=== PATIENT | male | born 1945 | race Caucasian/White ===

== ENCOUNTER 2017-01-12 12:34 | Emergency (ER) | payer MEDICARE ==
[~2017-01-12] VITALS: Ht 177.8 cm; Wt 88.4 kg
[~2017-01-12 12:34] MED LIST: BUPR-175 PO; DILT180C56 PO; DONE5TAB14 PO; NAME5TAB2 PO; ST J81CH PO
[2017-01-12 12:48] VITALS: BP 120/84; PULSE 71; RESP 16; TEMP 97.5; O2SAT 97
[2017-01-12] MEDS ORDERED: ASPI1TAB69 PO (12:58)
[2017-01-12] MEDS ORDERED: DILT180C56 PO (12:58)
[2017-01-12] MEDS ORDERED: DONE5TAB7 PO (12:58)
[2017-01-12] MEDS ORDERED: NAME5TAB2 PO (12:58)
--- NOTE | 2017-01-12 13:04 | PD ---
HPI Chief Complaint: Dizziness Time Seen by Provider: 12:51 Travel History International Travel<30 days: No Contact w/Intl Traveler<30days: No Traveled to known affect area: No History of Present Illness HPI This 71-year-old male says he is not feeling well today. He says his head is spinning and he feels weak all over. He has a history of atrial fibrillation that isn't chronically. He had one ablation which was not successful. He is given aspirin for anticoagulation. He has a history of vertigo in the past and he has chronic tinnitus. 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 He did not have brain surgery. PFSH Past Medical History Atrial Fibrillation: Yes Heart Rhythm Problems: Yes Cardiac Catheterization: No Cardiovascular Problems: Yes (A-FIB) High Cholesterol: No Congestive Heart Failure: No Diabetes: No Heparin Induced Thrombocytopen: No Hypertension: Yes Psychiatric: Yes Influenza Vaccination: Yes Past Surgical History Cardiac Surgery: Yes (ABLASION) Coronary Artery Bypass Graft: No Tonsillectomy: Yes Family History Family Myocardial Infarction: No Social History Alcohol Use: No Tobacco Use: No Substance Use: No Allergies-Medications (Allergen,Severity, Reaction): Coded Allergies: No Known Allergies (Unverified , 01/12/17) Reported Meds & Prescriptions Reported Meds & Active Scripts Active Reported Donepezil 5 Mg Tab 5 Mg PO HS Namenda (Memantine) 5 Mg Tab 5 Mg PO DAILY Diltiazem CD 24 HR 180 Mg Caper 180 Mg PO DAILY Aspirin 81 Mg Tabdr 81 Mg PO DAILY Review of Systems General / Constitutional: No: Fever, Chills Eyes: No: Diploplia, Blurred Vision HENT: Positive: Vertigo (tinnitus) Cardiovascular: No: Chest Pain or Discomfort, Palpitations Respiratory: No: Cough Gastrointestinal: No: Vomiting, Diarrhea Genitourinary: No: Frequency Musculoskeletal: Positive: Myalgias Neurologic: Positive: Weakness, Dizziness Endocrine: No: Heat Intolerance Hematologic/Lymphatic: No: Easy Bruising Physical Exam Narrative GENERAL: Well-developed male SKIN: Focused skin assessment warm/dry. HEAD: Atraumatic. Normocephalic. EYES: Pupils equal and round. No scleral icterus. No injection or drainage. Some right horizontal nystagmus on right lateral gaze ENT: No nasal bleeding or discharge. Mucous membranes pink and moist. NECK: Trachea midline. No JVD. CARDIOVASCULAR: Regular rate and rhythm. No murmur appreciated. RESPIRATORY: No accessory muscle use. Clear to auscultation. Breath sounds equal bilaterally. GASTROINTESTINAL: Abdomen soft, non-tender, nondistended. Hepatic and splenic margins not palpable. MUSCULOSKELETAL: No obvious deformities. No clubbing. No cyanosis. No edema. NEUROLOGICAL: Awake and alert. No obvious cranial nerve deficits. Motor grossly within normal limits. Normal speech. PSYCHIATRIC: Appropriate mood and affect; insight and judgment normal. Data Data Last Documented VS Vital Signs Date Time Temp Pulse Resp B/P Pulse Ox O2 Delivery O2 Flow Rate FiO2 01/12/17 13:40 64 18 117/80 97 Room Air 01/12/17 12:48 97.5 Orders Complete Blood Count With Diff (01/12/17 13:02) Basic Metabolic Panel (Bmp) (01/12/17 13:02) Troponin I (01/12/17 13:02) Magnesium (Mg) (01/12/17 13:02) Meclizine (Antivert) (01/12/17 13:15) Labs Laboratory Tests Test 01/12/17 13:15 White Blood Count 6.3 TH/MM3 Red Blood Count 5.39 MIL/MM3 Hemoglobin 16.0 GM/DL Hematocrit 47.9 % Mean Corpuscular Volume 88.9 FL Mean Corpuscular Hemoglobin 29.6 PG Mean Corpuscular Hemoglobin 33.4 % Concent Red Cell Distribution Width 12.2 % Platelet Count 176 TH/MM3 Mean Platelet Volume 8.7 FL Neutrophils (%) (Auto) 71.6 % Lymphocytes (%) (Auto) 17.4 % Monocytes (%) (Auto) 9.7 % Eosinophils (%) (Auto) 0.8 % Basophils (%) (Auto) 0.5 % Neutrophils # (Auto) 4.5 TH/MM3 Lymphocytes # (Auto) 1.1 TH/MM3 Monocytes # (Auto) 0.6 TH/MM3 Eosinophils # (Auto) 0.1 TH/MM3 Basophils # (Auto) 0.0 TH/MM3 CBC Comment DIFF FINAL Differential Comment Sodium Level 145 MEQ/L Potassium Level 4.0 MEQ/L Chloride Level 108 MEQ/L Carbon Dioxide Level 26.4 MEQ/L Anion Gap 11 MEQ/L Blood Urea Nitrogen 20 MG/DL Creatinine 1.10 MG/DL Estimat Glomerular Filtration 66 ML/MIN Rate Random Glucose 109 MG/DL Calcium Level 8.8 MG/DL Magnesium Level 2.5 MG/DL Troponin I LESS THAN 0.02 NG/ML MDM Medical Decision Making Medical Screen Exam Complete: Yes Emergency Medical Condition: Yes Medical Record Reviewed: Yes Differential Diagnosis Differential includes acute vertigo, electrolyte imbalance, infection Narrative Course Blood work is unremarkable. Patient is feeling better after Antivert. He is stable for discharge. The peripheral vertigo as it is associated with significant tinnitus Diagnosis Primary Impression: Vertigo Scripts Meclizine 25 Mg Tab25 Mg PO TID PRN (VERTIGO) #30 TAB Ref 0 Prov:Angel Preciado MD 01/12/17 Disposition: 01 DISCHARGE HOME Condition: Stable Angel Preciado MD Jan 12, 2017 13:04
[2017-01-12] MEDS ORDERED: MECLIZINE HCL 25 MG TAB PO ONE (13:15)
[2017-01-12 13:28] LABS: AUTOMATED NEUTROPHIL # 4.5 TH/MM3 (1.8-7.7); BASOPHIL % 0.5 % (0.0-2.0); EOSINOPHIL # 0.1 TH/MM3 (0-0.4); EOSINOPHIL % 0.8 % (0.0-4.0); HEMATOCRIT 47.9 % (39.0-51.0); HEMO FLAGS DIFF FINAL; LYMPH % 17.4 % (9.0-44.0); LYMPHOCYTE # 1.1 TH/MM3 (1.0-4.8); MEAN CELL VOLUME 88.9 FL (80.0-100.0); MEAN CORPUSCULAR HEMOGLOBIN 29.6 PG (27.0-34.0); MEAN CORPUSCULAR HGB CONC 33.4 % (32.0-36.0); MONO % 9.7 % (0.0-8.0); NEUT % 71.6 % (16.0-70.0); PLATELET COUNT 176 TH/MM3 (150-450); RED BLOOD COUNT 5.39 MIL/MM3 (4.50-5.90); RED CELL DISTRIBUTION WIDTH 12.2 % (11.6-17.2); WHITE BLOOD COUNT 6.3 TH/MM3 (4.0-11.0)
[2017-01-12 13:37] LABS: CHLORIDE 108 MEQ/L (98-107); SODIUM (NA) 145 MEQ/L (136-145)
[2017-01-12 13:40] VITALS: BP 117/80; PULSE 64; RESP 18; O2SAT 97
[2017-01-12 13:40] LABS: ANION GAP 11 MEQ/L (5-15); BICARBONATE 26.4 MEQ/L (21.0-32.0); BLOOD UREA NITROGEN 20 MG/DL (7-18); MAGNESIUM 2.5 MG/DL (1.5-2.5)
[2017-01-12 13:43] LABS: GLOMERULAR FILTRATION RATE 66 ML/MIN (>89)
[2017-01-12] MEDS ORDERED: MECL-62 PO (14:10)
== END 2017-01-12 14:33 | disposition home or self-care (01) ==
LOC: PHED 12:34
DX: H81.399 Other peripheral vertigo, unspecified ear (principal); H93.19 Tinnitus, unspecified ear; R53.1 Weakness; I10 Essential (primary) hypertension; Z79.82 Long term (current) use of aspirin; Z79.899 Other long term (current) drug therapy; Z86.79 Personal history of other diseases of the circulatory system; Z87.820 Personal history of traumatic brain injury; Z86.59 Personal history of other mental and behavioral disorders
CPT/HCPCS: 80048; 83735; 84484; 85025; 99284

== ENCOUNTER 2017-11-07 13:54 | Observation (INO) | payer MEDICARE ==
[~2017-11-07 13:54] MED LIST changes: +ASPI1TAB69 PO; -BUPR-175 PO; -DONE5TAB14 PO; +DONE5TAB7 PO; +MECL-62 PO; -ST J81CH PO
[2017-11-07 13:58] VITALS: BP 123/89; PULSE 91; RESP 14; TEMP 98.3; O2SAT 96
[2017-11-07 14:20] VITALS: O2SAT 98
[2017-11-07] MEDS ORDERED: VITACAP7 PO (14:20)
[2017-11-07] MEDS ORDERED: MEMA28CA PO (14:20)
[2017-11-07] MEDS ORDERED: DILT120C9 PO (14:20)
[2017-11-07] MEDS ORDERED: DONE10TA7 PO (14:20)
[2017-11-07] MEDS ORDERED: CYAN1TAB24 PO (14:20)
[2017-11-07] MEDS ORDERED: DILT120T PO (14:20)
[2017-11-07] MEDS ORDERED: VENL75TA PO (14:20)
[2017-11-07] MEDS ORDERED: ASPI-516 CHEW (14:20)
[2017-11-07] MEDS ORDERED: ALPR.5 PO (14:34)
--- NOTE | 2017-11-07 14:50 | PD ---
Physical Exam Narrative I, Dr. Almaraz, have reviewed the advance practice practitioner's documentation and am in agreement, met with the patient face to face, made the diagnosis, and the medical decision making was done by me. *My assessment and Findings: UTI vs. pneumonia vs. influenza 72yo F with history of dementia here with worsening mental status as per fiance. Said went to doctors office and temp was almost 100F. Pt is AAOx3 and denies any complaints. Said with occasional cough. Labs reviewed, no leukocytosis. H/H normal. TSH normal. Troponin negative. CMP unremarkable. Positive influenza A. CXR negative. CT brain negative. Due to altered mental status, family is very concern. Will admit for observation. Data Data Last Documented VS Vital Signs Date Time Temp Pulse Resp B/P (MAP) Pulse Ox O2 Delivery O2 Flow Rate FiO2 11/07/17 15:45 100 16 124/80 (95) 96 Room Air 11/07/17 13:58 98.3 Orders Orders Electrocardiogram (11/07/17 14:16) Complete Blood Count With Diff (11/07/17 14:16) Comprehensive Metabolic Panel (11/07/17 14:16) Ckmb (Isoenzyme) Profile (11/07/17 14:16) Troponin I (11/07/17 14:16) Blood Culture (11/07/17 14:16) Urinalysis - C+S If Indicated (11/07/17 14:16) Magnesium (Mg) (11/07/17 14:16) Thyroid Stimulating Hormone (11/07/17 14:16) Chest, Single Ap (11/07/17 14:16) Ct Brain W/O Iv Contrast(Rout) (11/07/17 14:16) Iv Access Insert/Monitor (11/07/17 14:16) Ecg Monitoring (11/07/17 14:16) Oximetry (11/07/17 14:16) Influenzae A/B Antigen (11/07/17 14:23) CKMB (11/07/17 14:25) CKMB% (11/07/17 14:25) Place In Observation (11/07/17 ) Vital Signs (Adult) Q4H (11/07/17 16:17) Activity Oob With Assistance (11/07/17 16:17) Diet Heart Healthy (11/07/17 Dinner) Sodium Chlor 0.9% 1000 Ml Inj (Ns 1000 M (11/07/17 17:00) Sodium Chloride 0.9% Flush (Ns Flush) (11/07/17 16:30) Sodium Chloride 0.9% Flush (Ns Flush) (11/07/17 21:00) Comprehensive Metabolic Panel (11/08/17 06:00) Complete Blood Count With Diff (11/08/17 06:00) Pt Request For Service (11/07/17 16:17) Case Management Consult (11/07/17 16:17) Enoxaparin Inj (Lovenox Inj) (11/07/17 18:00) Naloxone Inj (Narcan Inj) (11/07/17 16:30) Magnesium Hydroxide Liq (Milk Of Magnesi (11/07/17 16:30) Sennosides (Senokot) (11/07/17 16:30) Bisacodyl Supp (Dulcolax Supp) (11/07/17 16:30) Lactulose Liq (Lactulose Liq) (11/07/17 16:30) Oseltamivir (Tamiflu) (11/07/17 18:00) Admit Order (Ed Use Only) (11/07/17 16:19) Aspirin Chew (Aspirin Chew) (11/08/17 09:00) Donepezil (Aricept) (11/07/17 21:00) Diltiazem Cd (Cardizem Cd) (11/07/17 21:00) Patient Own Medication (11/08/17 09:00) Venlafaxine Xr (Effexor Xr) (11/08/17 09:00) Labs Laboratory Tests Test 11/07/17 14:25 11/07/17 15:40 White Blood Count 4.6 TH/MM3 Red Blood Count 4.88 MIL/MM3 Hemoglobin 15.0 GM/DL Hematocrit 43.3 % Mean Corpuscular Volume 88.7 FL Mean Corpuscular Hemoglobin 30.7 PG Mean Corpuscular Hemoglobin Concent 34.6 % Red Cell Distribution Width 13.5 % Platelet Count 130 TH/MM3 Mean Platelet Volume 8.8 FL Neutrophils (%) (Auto) 77.7 % Lymphocytes (%) (Auto) 8.9 % Monocytes (%) (Auto) 12.9 % Eosinophils (%) (Auto) 0.0 % Basophils (%) (Auto) 0.5 % Neutrophils # (Auto) 3.6 TH/MM3 Lymphocytes # (Auto) 0.4 TH/MM3 Monocytes # (Auto) 0.6 TH/MM3 Eosinophils # (Auto) 0.0 TH/MM3 Basophils # (Auto) 0.0 TH/MM3 CBC Comment DIFF FINAL Differential Comment Blood Urea Nitrogen 14 MG/DL Creatinine 1.24 MG/DL Random Glucose 82 MG/DL Total Protein 7.0 GM/DL Albumin 3.9 GM/DL Calcium Level 8.1 MG/DL Magnesium Level 2.1 MG/DL Alkaline Phosphatase 82 U/L Aspartate Amino Transf (AST/SGOT) 16 U/L Alanine Aminotransferase (ALT/SGPT) 15 U/L Total Bilirubin 0.5 MG/DL Sodium Level 138 MEQ/L Potassium Level 3.7 MEQ/L Chloride Level 103 MEQ/L Carbon Dioxide Level 28.9 MEQ/L Anion Gap 6 MEQ/L Estimat Glomerular Filtration Rate 58 ML/MIN Total Creatine Kinase 130 U/L Creatine Kinase MB 0.7 NG/ML Troponin I LESS THAN 0.02 NG/ML Thyroid Stimulating Hormone 3rd Gen 1.070 uIU/ML Urine Color YELLOW Urine Turbidity CLEAR Urine pH 7.0 Urine Specific [place] 1.022 Urine Protein 30 mg/dL Urine Glucose (UA) NEG mg/dL Urine Ketones NEG mg/dL Urine Occult Blood NEG Urine Nitrite NEG Urine Bilirubin NEG Urine Urobilinogen LESS THAN 2.0 MG/DL Urine Leukocyte Esterase NEG Urine RBC 2 /hpf Urine WBC 1 /hpf Urine Squamous Epithelial Cells <1 /hpf Urine Mucus FEW /lpf Microscopic Urinalysis Comment CULT NOT INDICATED MDM Supervised Visit with YURIDIA: Yes Interpretation(s) EKG: Afib at 93bpm. Normal axis. TWI III. No ST segment elevation or depression. Diagnosis Primary Impression: Altered mental status Qualified Codes: R41.82 - Altered mental status, unspecified Additional Impression: Influenza A Admitting Information Admitting Physician Requests: Rea Meyers DO Nov 07, 2017 14:50
--- NOTE | 2017-11-07 14:51 | RADRPT ---
EXAM DATE/TIME: 11/07/2017 14:31 [facility] COMPARISON: No previous studies available for comparison. INDICATIONS : Rapid heartbeat. MEDICAL HISTORY : traumatic brain injury SURGICAL HISTORY : None. ENCOUNTER: Initial ACUITY: 2 days PAIN SCORE: 0/10 LOCATION: Bilateral chest FINDINGS: A single view of the chest demonstrates the lungs to be symmetrically aerated without evidence of mas s, infiltrate or effusion. The cardiomediastinal contours are unremarkable. Osseous structures are intact. CONCLUSION: No acute disease. Freddie Poole MD on November 07, 2017 at 14:49 Board Certified Radiologist. This report was verified electronically.
--- NOTE | 2017-11-07 14:52 | RADRPT ---
EXAM DATE/TIME: 11/07/2017 14:37 [facility] COMPARISON: No previous studies available for comparison. INDICATIONS : Weakness and confusion. RADIATION DOSE: 40.27 CTDIvol (mGy) MEDICAL HISTORY : Cardiovascular disease. Hypertension. SURGICAL HISTORY : Tonsillectomy. ENCOUNTER: Initial ACUITY: 1 day PAIN SCALE: 0/10 LOCATION: cranial TECHNIQUE: Multiple contiguous axial images were obtained of the head. Using automated exposure control and adj ustment of the mA and/or kV according to patient size, radiation dose was kept as low as reasonably a chievable to obtain optimal diagnostic quality images. DICOM format image data is available electro nically for review and comparison. FINDINGS: CEREBRUM: The ventricles are normal for age. No evidence of midline shift, mass lesion, hemorrhage or acute in farction. No extra-axial fluid collections are seen. POSTERIOR FOSSA: The cerebellum and brainstem are intact. The 4th ventricle is midline. The cerebellopontine angle i s unremarkable. EXTRACRANIAL: The visualized portion of the orbits is intact. SKULL: The calvaria is intact. No evidence of skull fracture. CONCLUSION: 1. No acute intracranial abnormality. Alcides Mack MD on November 07, 2017 at 14:47 Board Certified Radiologist. This report was verified electronically.
[2017-11-07 15:19] LABS: AUTOMATED NEUTROPHIL # 3.6 TH/MM3 (1.8-7.7); BASOPHIL % 0.5 % (0.0-2.0); HEMATOCRIT 43.3 % (39.0-51.0); LYMPH % 8.9 % (9.0-44.0); LYMPHOCYTE # 0.4 TH/MM3 (1.0-4.8); MEAN CELL VOLUME 88.7 FL (80.0-100.0); MEAN CORPUSCULAR HEMOGLOBIN 30.7 PG (27.0-34.0); MEAN CORPUSCULAR HGB CONC 34.6 % (32.0-36.0); MEAN PLATELET VOLUME 8.8 FL (7.0-11.0); MONO % 12.9 % (0.0-8.0); MONOCYTE # 0.6 TH/MM3 (0-0.9); NEUT % 77.7 % (16.0-70.0); PLATELET COUNT 130 TH/MM3 (150-450); RED BLOOD COUNT 4.88 MIL/MM3 (4.50-5.90); RED CELL DISTRIBUTION WIDTH 13.5 % (11.6-17.2); WHITE BLOOD COUNT 4.6 TH/MM3 (4.0-11.0)
[2017-11-07 15:41] LABS: ALBUMIN 3.9 GM/DL (3.4-5.0); ALT (GPT) 15 U/L (12-78); AST (GOT) 16 U/L (15-37); BICARBONATE 28.9 MEQ/L (21.0-32.0); BLOOD UREA NITROGEN 14 MG/DL (7-18); CALCIUM 8.1 MG/DL (8.5-10.1); CHLORIDE 103 MEQ/L (98-107); CREATININE 1.24 MG/DL (0.60-1.30); GLOMERULAR FILTRATION RATE 58 ML/MIN (>89); GLUCOSE,RANDOM 82 MG/DL (74-106); MAGNESIUM 2.1 MG/DL (1.5-2.5); SODIUM (NA) 138 MEQ/L (136-145)
[2017-11-07 15:45] VITALS: BP 124/80; PULSE 100; RESP 16; O2SAT 96
[2017-11-07 15:51] LABS: ALKALINE PHOSPHATASE 82 U/L (45-117); TOTAL BILIRUBIN ADULT 0.5 MG/DL (0.2-1.0); TROPONIN I LESS THAN 0.02 NG/ML (0.02-0.05)
[2017-11-07 16:18] LABS: BILIRUBIN, URINE NEG (NEG); BLOOD, URINE NEG (NEG); GLUCOSE,URINE NEG (NEG); KETONE, URINE NEG (NEG); MUCUS URINE FEW /lpf (OCC); NITRITE,URINE NEG (NEG); SQUAMOUS EPITHELIAL CELL URINE <1 /hpf (0-5); URINE COLOR YELLOW (YELLW/STRAW); URINE LEUKOCYTE ESTERASE NEG (NEG)
--- NOTE | 2017-11-07 16:18 | PD ---
HPI Chief Complaint: Medical Clearance Time Seen by Provider: 14:04 Travel History International Travel<30 days: No Contact w/Intl Traveler<30days: No Traveled to known affect area: No History of Present Illness HPI 72-year-old male that presents to the ED for evaluation of medical clearance. Apparently since yesterday patient has been having cold-like symptoms and low- grade fevers. Body aches as well. Patient himself has a history of traumatic brain injury and has a history of dementia and his abdomen somewhat of a poor historian. He does have a history of atrial fibrillation. He comes here with family members who provide most of the information. Per patient his been having cough and runny nose since yesterday. Family agree with this. Today family noted that the patient has been more weak and will not get up on its own. Patient appears to have confusion episodes and episodes where he cannot really talk to anybody. Unclear if this is slower speech or he is mumbling. Family cannot really tell me specifically. Per son who works at this facility he has not dramatically old change in 24 hours. He is being more altered than his usual. No sick contacts. He didn't got the flu shot this year. Cough is productive. No chest pain or shortness of breath. Patient has had low-grade fever 100. No allergies to medication. No other medical issues. Patient went to see PCP today who recommended that the patient comes here to get evaluated for further eval. PFSH Past Medical History Hx Anticoagulant Therapy: No Atrial Fibrillation: Yes Heart Rhythm Problems: Yes Cardiac Catheterization: No Cardiovascular Problems: Yes (afib) High Cholesterol: No Congestive Heart Failure: No Diabetes: No Heparin Induced Thrombocytopen: No Hypertension: Yes Psychiatric: Yes Past Surgical History Cardiac Surgery: Yes (ABLASION) Coronary Artery Bypass Graft: No Tonsillectomy: Yes Social History Alcohol Use: No Tobacco Use: No Substance Use: No Allergies-Medications (Allergen,Severity, Reaction): Coded Allergies: No Known Allergies (Unverified , 01/12/17) Reported Meds & Prescriptions Reported Meds & Active Scripts Active Reported Xanax (Alprazolam) 0.5 Mg Tab 0.5 Mg PO BID PRN B Complex (B-Complex Vitamins) 1 Cap 1 Cap PO DAILY B12 (Cyanocobalamin) 1,000 Mcg Tab 1 Tab PO DAILY Aspirin 81 Mg Chew 81 Mg CHEW DAILY Effexor (Venlafaxine HCl) 75 Mg Tab 75 Mg PO DAILY Diltiazem ER 12 HR (Diltiazem HCl) 120 Mg Caper 120 Mg PO BID Diltiazem (Diltiazem HCl) 120 Mg Tab 120 Mg PO QID Donepezil 10 Mg Tab 10 Mg PO HS Namenda Xr (Memantine) 28 Mg Caper 28 Mg PO DAILY Review of Systems Except as stated in HPI: all other systems reviewed are Neg Physical Exam Narrative GENERAL: Well-nourished, well-developed patient in no apparent distress. SKIN: Warm and dry. HEAD: Atraumatic. Normocephalic. EYES: Pupils equal and round reactive to light and accommodation. No scleral icterus. No injection or drainage. ENT: No nasal bleeding or discharge. Mucous membranes pink and moist. TMs are clear with no sign of infection or perforation. No mastoid tenderness. Ear canals are intact bilaterally. No lymphadenopathy. Nostril mucosa is red and moist with clear mucus noted. No sinus tenderness to palpation noted. Tonsils are not enlarged or swollen. No ulvua Deviation. Tongue is midline. NECK: Trachea midline. No JVD. No meningeal signs noted CARDIOVASCULAR: Regular rate and rhythm. RESPIRATORY: No accessory muscle use. Clear to auscultation. Breath sounds equal bilaterally. GASTROINTESTINAL: Abdomen soft, non-tender, nondistended. Hepatic and splenic margins not palpable. MUSCULOSKELETAL: Extremities without clubbing, cyanosis, or edema. No obvious deformities. Full range of motion of the upper and lower extremities bilaterally. 2+ pulses bilaterally. NEUROLOGICAL: Awake and alert. No obvious cranial nerve deficits. Motor grossly within normal limits. Five out of 5 muscle strength in the arms and legs. Normal speech. PSYCHIATRIC: Appropriate mood and affect; insight and judgment normal. Data Data Last Documented VS Vital Signs Date Time Temp Pulse Resp B/P (MAP) Pulse Ox O2 Delivery O2 Flow Rate FiO2 11/07/17 15:45 100 16 124/80 (95) 96 Room Air 11/07/17 13:58 98.3 Orders Orders Electrocardiogram (11/07/17 14:16) Complete Blood Count With Diff (11/07/17 14:16) Comprehensive Metabolic Panel (11/07/17 14:16) Ckmb (Isoenzyme) Profile (11/07/17 14:16) Troponin I (11/07/17 14:16) Blood Culture (11/07/17 14:16) Urinalysis - C+S If Indicated (11/07/17 14:16) Magnesium (Mg) (11/07/17 14:16) Thyroid Stimulating Hormone (11/07/17 14:16) Chest, Single Ap (11/07/17 14:16) Ct Brain W/O Iv Contrast(Rout) (11/07/17 14:16) Iv Access Insert/Monitor (11/07/17 14:16) Ecg Monitoring (11/07/17 14:16) Oximetry (11/07/17 14:16) Influenzae A/B Antigen (11/07/17 14:23) CKMB (11/07/17 14:25) CKMB% (11/07/17 14:25) Place In Observation (11/07/17 ) Vital Signs (Adult) Q4H (11/07/17 16:17) Activity Oob With Assistance (11/07/17 16:17) Diet Heart Healthy (11/07/17 Dinner) Sodium Chlor 0.9% 1000 Ml Inj (Ns 1000 M (11/07/17 16:17) Sodium Chloride 0.9% Flush (Ns Flush) (11/07/17 16:30) Sodium Chloride 0.9% Flush (Ns Flush) (11/07/17 21:00) Comprehensive Metabolic Panel (11/08/17 06:00) Complete Blood Count With Diff (11/08/17 06:00) Pt Request For Service (11/07/17 16:17) Case Management Consult (11/07/17 16:17) Enoxaparin Inj (Lovenox Inj) (11/07/17 16:30) Naloxone Inj (Narcan Inj) (11/07/17 16:30) Magnesium Hydroxide Liq (Milk Of Magnesi (11/07/17 16:30) Sennosides (Senokot) (11/07/17 16:30) Bisacodyl Supp (Dulcolax Supp) (11/07/17 16:30) Lactulose Liq (Lactulose Liq) (11/07/17 16:30) Oseltamivir (Tamiflu) (11/07/17 16:30) Admit Order (Ed Use Only) (11/07/17 16:19) Labs Laboratory Tests Test 11/07/17 14:25 11/07/17 15:40 White Blood Count 4.6 TH/MM3 Red Blood Count 4.88 MIL/MM3 Hemoglobin 15.0 GM/DL Hematocrit 43.3 % Mean Corpuscular Volume 88.7 FL Mean Corpuscular Hemoglobin 30.7 PG Mean Corpuscular Hemoglobin Concent 34.6 % Red Cell Distribution Width 13.5 % Platelet Count 130 TH/MM3 Mean Platelet Volume 8.8 FL Neutrophils (%) (Auto) 77.7 % Lymphocytes (%) (Auto) 8.9 % Monocytes (%) (Auto) 12.9 % Eosinophils (%) (Auto) 0.0 % Basophils (%) (Auto) 0.5 % Neutrophils # (Auto) 3.6 TH/MM3 Lymphocytes # (Auto) 0.4 TH/MM3 Monocytes # (Auto) 0.6 TH/MM3 Eosinophils # (Auto) 0.0 TH/MM3 Basophils # (Auto) 0.0 TH/MM3 CBC Comment DIFF FINAL Differential Comment Blood Urea Nitrogen 14 MG/DL Creatinine 1.24 MG/DL Random Glucose 82 MG/DL Total Protein 7.0 GM/DL Albumin 3.9 GM/DL Calcium Level 8.1 MG/DL Magnesium Level 2.1 MG/DL Alkaline Phosphatase 82 U/L Aspartate Amino Transf (AST/SGOT) 16 U/L Alanine Aminotransferase (ALT/SGPT) 15 U/L Total Bilirubin 0.5 MG/DL Sodium Level 138 MEQ/L Potassium Level 3.7 MEQ/L Chloride Level 103 MEQ/L Carbon Dioxide Level 28.9 MEQ/L Anion Gap 6 MEQ/L Estimat Glomerular Filtration Rate 58 ML/MIN Total Creatine Kinase 130 U/L Creatine Kinase MB 0.7 NG/ML Troponin I LESS THAN 0.02 NG/ML Thyroid Stimulating Hormone 3rd Gen 1.070 uIU/ML MDM Medical Decision Making Medical Screen Exam Complete: Yes Emergency Medical Condition: Yes Medical Record Reviewed: Yes Interpretation(s) Last Impressions Head CT 11/07/171415 Signed Impressions: Service Date/Time: Tuesday, November 07, 2017 14:37 - CONCLUSION: 1. No acute intracranial abnormality. Alcides Mack MD Chest X-Ray 11/07/17 1416 Signed Impressions: Service Date/Time: [place], November 07, 2017 14:31 - CONCLUSION: No acute disease. Freddie Poole MD CBC & BMP Diagram 11/07/17 14:25 Total Protein 7.0, Albumin 3.9, Calcium Level 8.1 L, Magnesium Level 2.1, Alkaline Phosphatase 82, Aspartate Amino Transf (AST/SGOT) 16, Alanine Aminotransferase (ALT/SGPT) 15, Total Bilirubin 0.5 troponin and CKMB negative Flu positive EKG shows atrial fibrillation but no RVR. Differential Diagnosis Influenza versus altered mental status versus aphasia versus weakness versus viral illness versus pneumonia Narrative Course 72-year-old male that presents to the ED for evaluation of cold-like symptoms. Patient was properly examined and was found to have signs and symptoms consistent with upper mental status. Possibly from viral illness versus infection. Family has not a 24-hour dramatically change in his behavior. Labs and imaging were ordered. Labs and imaging is were negative except for influenza A+. Case was discussed in my attending as well as with the family who do not feel comfortable sending the patient home secondary to his altered mental status and her medical change in behavior in 24 hours. My attending recommends admission for. This was discussed with Dr. Moctezuma who agrees with admission for FOR evaluation. patient and family agrees with this. Diagnosis Primary Impression: Altered mental status Qualified Codes: R41.82 - Altered mental status, unspecified Additional Impression: Influenza A Admitting Information Admitting Physician Requests: Emilio Roy Nov 07, 2017 16:18
[2017-11-07] MEDS ORDERED: MAGNESIUM HYDROXIDE SUSP 30 ML CUP PO PRN (16:30)
[2017-11-07] MEDS ORDERED: BISACODYL 10 MG SUPP RECTAL PRN (16:30)
[2017-11-07] MEDS ORDERED: SENNOSIDES 8.6 MG TAB PO PRN (16:30)
[2017-11-07] MEDS ORDERED: LACTULOSE SYRUP 20 GM/30 ML CUP PO PRN (16:30)
[2017-11-07] MEDS ORDERED: NALOXONE HCL 0.4 MG/ML AMP IV PUSH PRN (16:30)
[2017-11-07] MEDS ORDERED: SODIUM CHLORIDE 0.9% FLUSH 10 ML FLUSH IV FLUSH PRN (16:30)
--- NOTE | 2017-11-07 17:50 | HHI.HP ---
[facility] Primary Care Physician Fam Sol MD Admission Diagnosis altered mental status, influenza Diagnoses: Travel History International Travel<30 Days: No Contact w/Intl Traveler <30 Da: No Traveled to Known Affected Are: No History of Present Illness 72-year-old male with a history of dementia, traumatic brain injury, atrial fibrillation, who presents with a three-day history of worsening malaise, dry cough over the past 3 days, subjective fevers. Fiance at bedside reports patient confused today, at times disoriented as to situation. No slurred speech. No focal weakness. Fiance says he is back to normal after IV fluids in the ER. patient says he is still very weak, too weak to go home. Patient denies any sick contacts. Review of Systems Performed and negative except for history of present illness and past medical history. Past Family Social History Past Medical History Traumatic brain injury, with short-term memory difficulty Obstructive sleep apnea Atrial fibrillation. Patient previously on warfarin, however and coagulation was discontinued some time back to [facility]. Hypertension Past Surgical History Cardiac ablation which was unsuccessful Tonsillectomy and adenoidectomy Reported Medications Reported Meds & Active Scripts Active Reported Xanax (Alprazolam) 0.5 Mg Tab 0.5 Mg PO BID PRN B Complex (B-Complex Vitamins) 1 Cap 1 Cap PO DAILY B12 (Cyanocobalamin) 1,000 Mcg Tab 1 Tab PO DAILY Aspirin 81 Mg Chew 81 Mg CHEW DAILY Effexor (Venlafaxine HCl) 75 Mg Tab 75 Mg PO DAILY Diltiazem ER 12 HR (Diltiazem HCl) 120 Mg Caper 120 Mg PO BID Donepezil 10 Mg Tab 10 Mg PO HS Namenda Xr (Memantine) 28 Mg Caper 28 Mg PO DAILY Allergies: Coded Allergies: No Known Allergies (Unverified Allergy, Unknown, 11/07/17) Family History Father unknown medical issues. Mother at age 82. Unknown medical issues. Social History Patient is nonsmoker, nondrinker, denies illicit drugs. Lives with marco. Physical Exam Vital Signs Vital Signs Date Time Temp Pulse Resp B/P (MAP) Pulse Ox O2 Delivery O2 Flow Rate FiO2 11/07/17 17:31 11/07/17 15:45 100 16 124/80 (95) 96 Room Air 11/07/17 14:20 98 Room Air 11/07/17 14:13 17 11/07/17 13:58 98.3 91 14 123/89 (100) 96 Physical Exam GENERAL: This is a well-nourished, well-developed patient, in no apparent distress. SKIN: No rashes, ecchymoses or lesions. Cool and dry. HEAD: Atraumatic. Normocephalic. No temporal or scalp tenderness. EYES: Pupils equal round and reactive. Extraocular motions intact. No scleral icterus. No injection or drainage. ENT: Nose without bleeding, purulent drainage or septal hematoma. Throat without erythema, tonsillar hypertrophy or exudate. Uvula midline. Airway patent. NECK: Trachea midline. No JVD or lymphadenopathy. Supple, nontender, no meningeal signs. CARDIOVASCULAR: Regular rate and rhythm without murmurs, gallops, or rubs. RESPIRATORY: Clear to auscultation. Breath sounds equal bilaterally. No wheezes , rales, or rhonchi. GASTROINTESTINAL: Abdomen soft, non-tender, nondistended. No hepato-splenomegaly , or palpable masses. No guarding. MUSCULOSKELETAL: Extremities without clubbing, cyanosis, or edema. No joint tenderness, effusion, or edema noted. No calf tenderness. Negative Homans sign bilaterally. NEUROLOGICAL: Awake and alert. Cranial nerves II through XII intact. Generalized weakness, however still Five out of 5 muscle strength in all muscle groups. Normal speech. Patient is oriented 3, however understanding of medical history and conditions is inadequate. Suellen at bedside says this is standard for him, and she manages medications at home. Laboratory Laboratory Tests Test 11/07/17 14:25 11/07/17 15:40 White Blood Count 4.6 Red Blood Count 4.88 Hemoglobin 15.0 Hematocrit 43.3 Mean Corpuscular Volume 88.7 Mean Corpuscular Hemoglobin 30.7 Mean Corpuscular Hemoglobin Concent 34.6 Red Cell Distribution Width 13.5 Platelet Count 130 Mean Platelet Volume 8.8 Neutrophils (%) (Auto) 77.7 Lymphocytes (%) (Auto) 8.9 Monocytes (%) (Auto) 12.9 Eosinophils (%) (Auto) 0.0 Basophils (%) (Auto) 0.5 Neutrophils # (Auto) 3.6 Lymphocytes # (Auto) 0.4 Monocytes # (Auto) 0.6 Eosinophils # (Auto) 0.0 Basophils # (Auto) 0.0 CBC Comment DIFF FINAL Differential Comment Blood Urea Nitrogen 14 Creatinine 1.24 Random Glucose 82 Total Protein 7.0 Albumin 3.9 Calcium Level 8.1 Magnesium Level 2.1 Alkaline Phosphatase 82 Aspartate Amino Transf (AST/SGOT) 16 Alanine Aminotransferase (ALT/SGPT) 15 Total Bilirubin 0.5 Sodium Level 138 Potassium Level 3.7 Chloride Level 103 Carbon Dioxide Level 28.9 Anion Gap 6 Estimat Glomerular Filtration Rate 58 Total Creatine Kinase 130 Creatine Kinase MB 0.7 Troponin I LESS THAN 0.02 Thyroid Stimulating Hormone 3rd Gen 1.070 Urine Color YELLOW Urine Turbidity CLEAR Urine pH 7.0 Urine Specific Mentor 1.022 Urine Protein 30 Urine Glucose (UA) NEG Urine Ketones NEG Urine Occult Blood NEG Urine Nitrite NEG Urine Bilirubin NEG Urine Urobilinogen LESS THAN 2.0 Urine Leukocyte Esterase NEG Urine RBC 2 Urine WBC 1 Urine Squamous Epithelial Cells <1 Urine Mucus FEW Microscopic Urinalysis Comment CULT NOT INDICATED Date/Time Source Procedure Growth Status 11/07/17 14:25 Blood Peripheral Aerobic Blood Culture Pending Received 11/07/17 14:25 Blood Peripheral Anaerobic Blood Culture Pending Received 11/07/17 14:25 Nasal Washing Influenza Types A,B Antigen ([place]) - Final Positive For Flu A Antigen Complete Result Diagram: 11/07/17 1425 11/07/17 1425 Imaging Last Impressions Head CT 11/07/17 1416 Signed Impressions: Service Date/Time: Tuesday, November 07, 2017 14:37 - CONCLUSION: 1. No acute intracranial abnormality. Alcides Mack MD Chest X-Ray 11/07/17 1416 Signed Impressions: Service Date/Time: Tuesday, November 07, 2017 14:31 - CONCLUSION: No acute disease. MD Vida Phillips VTE Risk Assessment Capkem VTE Risk Assessment: Mod/High Risk (score >= 2) Caprini Risk Assessment Model Point Value = 1 Point Value = 2 Point Value = 3 Point Value = 5 Age 41-60 Minor surgery BMI > 25 kg/m2 Swollen legs Varicose veins or History of unexplained or recurrent spontaneous Oral contraceptives or hormone replacement Sepsis (< 1 month) Serious lung disease, including pneumonia (< 1 month) Abnormal pulmonary function Acute myocardial infarction Congestive heart failure (< 1 month) History of inflammatory bowel disease Medical patient at bed rest Age 61-74 Arthroscopic surgery Major open surgery (> 45 min) Laparoscopic surgery (> 45 min) Malignancy Confined to bed (> 72 hours) Immobilizing plaster cast Central venous access Age >= 75 History of VTE Family history of VTE Factor V Leiden Prothrombin [id number] Lupus anticoagulant Anticardiolipin antibodies Elevated serum homocysteine Heparin-induced thrombocytopenia Other congenital or acquired thrombophilia Stroke (< 1 month) Elective arthroplasty Hip, pelvis, or leg fracture Acute spinal cord injury (< 1 month) Prophylaxis Regimen Total Risk Factor Score Risk Level Prophylaxis Regimen 0-1 Low Early ambulation 2 Moderate Order ONE of the following: *Sequential Compression Device (SCD) *Heparin 5000 units SQ BID 3-4 Higher Order ONE of the following medications: *Heparin 5000 units SQ TID *Enoxaparin/Lovenox 40 mg SQ daily (WT < 150 kg, CrCl > 30 mL/min) *Enoxaparin/Lovenox 30 mg SQ daily (WT < 150 kg, CrCl > 10-29 mL/min) *Enoxaparin/Lovenox 30 mg SQ BID (WT < 150 kg, CrCl > 30 mL/min) AND/OR *Sequential Compression Device (SCD) 5 or more Highest Order ONE of the following medications: *Heparin 5000 units SQ TID (Preferred with Epidurals) *Enoxaparin/Lovenox 40 mg SQ daily (WT < 150 kg, CrCl > 30 mL/min) *Enoxaparin/Lovenox 30 mg SQ daily (WT < 150 kg, CrCl > 10-29 mL/min) *Enoxaparin/Lovenox 30 mg SQ BID (WT < 150 kg, CrCl > 30 mL/min) AND *Sequential Compression Device (SCD) Assessment and Plan Assessment and Plan //Acute influenza infection //Generalized weakness. -Chest x-ray with no acute findings. = Positive influenza swab -With symptom of encephalopathy, generalized weakness. -We'll start on Tamiflu. IV fluids. Continued observation. PT consult. //Encephalopathy. -CT head with no acute findings -Secondary to infection, influenza positive. on Top of chronic dementia. = Improved with IV fluids. Continue to monitor //History of dementia -Patient back to baseline per payam after hydration. Continue home medications. //Atrial fibrillation. Chronic. Continue home diltiazem. Patient is not on anticoagulation. Hold with primary care at discharge. //Prophylaxis. Lovenox. Denies any history of bleeding Discussed Condition With Patient, nurse, ED physician, suellen at bedside Patricio Mathew MD Nov 07, 2017 17:50
[2017-11-07] MEDS: SODIUM CHLOR 0.9% 1000 ML INJ 1,000 ML IV SCH ×2 (18:15→21:27)
[2017-11-07] MEDS: ENOXAPARIN SODIUM 40 MG/0.4 ML SYRINGE SQ SCH (18:15)
[2017-11-07 18:27] VITALS: BP 121/92; PULSE 95; RESP 19; TEMP 98.5; O2SAT 92
[2017-11-07] MEDS: OSELTAMIVIR PHOSPHATE 75 MG CAP PO SCH (19:02)
[2017-11-07] MEDS: DILTIAZEM-CD 120 MG CAP ER PO SCH (21:00)
[2017-11-07 21:04] VITALS: BP 121/79; PULSE 103; RESP 18; TEMP 98.1; O2SAT 98
[2017-11-07] MEDS: SODIUM CHLORIDE 0.9% FLUSH 10 ML FLUSH IV FLUSH SCH (21:26)
[2017-11-07] MEDS: DONEPEZIL HCL 5 MG TAB PO SCH (21:27)
[2017-11-07] MEDS: ACETAMINOPHEN 325 MG TAB PO PRN (22:30)
[2017-11-07 23:46] VITALS: BP 117/64; PULSE 104; RESP 18; TEMP 99.1; O2SAT 97
[2017-11-08 03:28] VITALS: BP 105/71; PULSE 88; RESP 18; TEMP 98.1; O2SAT 95
[2017-11-08] MEDS: OSELTAMIVIR PHOSPHATE 75 MG CAP PO SCH ×2 (06:23→18:21)
[2017-11-08 07:37] LABS: AUTOMATED NEUTROPHIL # 1.5 TH/MM3 (1.8-7.7); BASOPHIL % 0.7 % (0.0-2.0); EOSINOPHIL % 0.1 % (0.0-4.0); HEMATOCRIT 43.2 % (39.0-51.0); HEMOGLOBIN 14.8 GM/DL (13.0-17.0); LYMPH % 21.6 % (9.0-44.0); LYMPHOCYTE # 0.6 TH/MM3 (1.0-4.8); MEAN CELL VOLUME 90.3 FL (80.0-100.0); MEAN CORPUSCULAR HGB CONC 34.3 % (32.0-36.0); MEAN PLATELET VOLUME 8.7 FL (7.0-11.0); MONO % 26.6 % (0.0-8.0); MONOCYTE # 0.8 TH/MM3 (0-0.9); PLATELET COUNT 108 TH/MM3 (150-450); RED BLOOD COUNT 4.78 MIL/MM3 (4.50-5.90); RED CELL DISTRIBUTION WIDTH 13.6 % (11.6-17.2); WHITE BLOOD COUNT 2.9 TH/MM3 (4.0-11.0)
[2017-11-08 07:59] LABS: ALBUMIN 3.5 GM/DL (3.4-5.0); ALT (GPT) 17 U/L (12-78); AST (GOT) 20 U/L (15-37); BICARBONATE 24.4 MEQ/L (21.0-32.0); BLOOD UREA NITROGEN 16 MG/DL (7-18); CHLORIDE 105 MEQ/L (98-107); CREATININE 1.15 MG/DL (0.60-1.30); GLOMERULAR FILTRATION RATE 63 ML/MIN (>89); GLUCOSE,RANDOM 79 MG/DL (74-106); SODIUM (NA) 138 MEQ/L (136-145)
[2017-11-08 08:00] LABS: ALKALINE PHOSPHATASE 70 U/L (45-117); TOTAL BILIRUBIN ADULT 0.5 MG/DL (0.2-1.0); TOTAL PROTEIN 6.3 GM/DL (6.4-8.2)
[2017-11-08 08:46] VITALS: BP 129/92; PULSE 97; RESP 18; TEMP 96.5; O2SAT 95
[2017-11-08] MEDS ORDERED: MEMANTINE 28 MG PO SCH (09:00)
[2017-11-08] MEDS: DILTIAZEM-CD 120 MG CAP ER PO SCH (09:50)
[2017-11-08] MEDS: VENLAFAXINE HCL XR 75 MG CAP PO SCH (09:51)
[2017-11-08] MEDS: SODIUM CHLORIDE 0.9% FLUSH 10 ML FLUSH IV FLUSH SCH (09:51)
[2017-11-08] MEDS: ASPIRIN 81 MG CHEW TAB CHEW SCH (09:51)
--- NOTE | 2017-11-08 10:51 | HHI.PR ---
Subjective Remarks Follow-up influenza. States he is doing much better. No complaints. He wants to go home. Discussed with RN and physical therapy Objective Vitals Vital Signs Date Time Temp Pulse Resp B/P (MAP) Pulse Ox O2 Delivery O2 Flow Rate FiO2 11/08/17 08:46 96.5 97 18 129/92 (104) 95 11/08/17 03:28 98.1 88 18 105/71 (82) 95 11/07/17 23:46 99.1 104 18 117/64 (81) 97 11/07/17 21:04 98.1 103 18 121/79 (93) 98 11/07/17 18:27 98.5 95 19 121/92 (102) 92 11/07/17 17:31 11/07/17 15:45 100 16 124/80 (95) 96 Room Air 11/07/17 14:20 98 Room Air 11/07/17 14:13 17 11/07/17 13:58 98.3 91 14 123/89 (100) 96 Result Diagram: 11/08/17 0655 11/08/17 0655 Imaging Last Impressions Head CT 11/07/17 1416 Signed Impressions: Service Date/Time: Tuesday, November 07, 2017 14:37 - CONCLUSION: 1. No acute intracranial abnormality. Alcides Mack MD Chest X-Ray 11/07/17 1416 Signed Impressions: Service Date/Time: Tuesday, November 07, 2017 14:31 - CONCLUSION: No acute disease. Freddie Poole MD Objective Remarks GENERAL: This is a well-nourished, well-developed patient, in no apparent distress. SKIN: No rashes, ecchymoses or lesions. Cool and dry. CARDIOVASCULAR: Regular rate and rhythm without murmurs, gallops, or rubs. RESPIRATORY: Clear to auscultation. Breath sounds equal bilaterally. No wheezes , rales, or rhonchi. GASTROINTESTINAL: Abdomen soft, non-tender, nondistended. No guarding. MUSCULOSKELETAL: Extremities without clubbing, cyanosis, or edema. No joint tenderness, effusion, or edema noted. No calf tenderness. Negative Homans sign bilaterally. NEUROLOGICAL: Awake and alert. Oriented. Cranial nerves II through XII intact. Nonfocal Procedures None A/P Problem List: (1) Influenza A ICD Code: J10.1 - Influenza due to other identified influenza virus with other respiratory manifestations Status: Acute Assessment and Plan Acute influenza infection. Stable complete Tamiflu treatment Generalized weakness. Improved with IV hydration. Physical therapy recommended home health care PT Encephalopathy. CT head with no acute findings. Secondary to infection, influenza positive. on Top of chronic dementia. Improved w. Continue to monitor Atrial fibrillation. Chronic. Continue home diltiazem. Patient is not on anticoagulation. Follow-up with primary care at discharge. Prophylaxis. Lovenox. Denies any history of bleeding Discharge Planning Discharge patient to home Condition on discharge: Improved Regular Diet as tolerated Ad Britni activity Rx written: Tamiflu Follow-up with primary care physician Grady Goodman MD Nov 08, 2017 10:50
--- NOTE | 2017-11-08 11:17 | HHI.FF ---
Face to Face Verification Diagnosis: (1) Influenza A Physical Therapy Order: Evaluate and Treat, Improve ambulation, Strength and gait training Home Health Nursing Order: Medical education Signs/symptoms of disease process Medication education-adverse effect Nursing assessment with vital signs I have seen patient Paul Romero on 11/08/17. My clinical findings support the need for the requested home health care services because: Deconditioned w/ increased weakness I certify that my clinical findings support that this patient is homebound because: Need for psychosocial assistance Grady Goodman MD Nov 08, 2017 11:17
[2017-11-08 12:20] VITALS: BP 111/79; PULSE 102; RESP 18; TEMP 96.2; O2SAT 98
[2017-11-08] MEDS ORDERED: OSEL75 PO (13:16)
--- NOTE | 2017-11-08 13:18 | HHI.DCPOC ---
Discharge Care Plan Diagnosis: (1) Influenza A Goals to Promote Your Health * To prevent worsening of your condition and complications * To maintain your health at the optimal level Directions to Meet Your Goals Take your medications as prescribed Follow your dietary instruction Follow activity as directed Keep your appointments as scheduled Take your immunizations and boosters as scheduled If your symptoms worsen call your PCP, if no PCP go to Urgent Care Center or Emergency Room Smoking is Dangerous to Your Health. Avoid second hand smoke Call the 24-hour hour crisis hotline for domestic abuse at Lotus Petersen PA-C Nov 08, 2017 13:18
--- NOTE | 2017-11-08 13:25 | EKG ---
Date Performed: 11/07/2017 Time Performed: 14:28:52 PTAGE: 72 years EKG: ATRIAL FIBRILLATION Since the prior tracing, there has been no significant change ABNORMAL RHYTHM ECG PREVIOUS TRACING : 07/20/2013 19.54 DOCTOR: Zackery Ramirez Interpretating Date/Time 11/08/2017 13:23:50
[2017-11-08] MEDS ORDERED: POTASSIUM CHLORIDE 20 MEQ CONTROLLED RELEASE TAB PO ONE (14:00)
[2017-11-08] MEDS: ACETAMINOPHEN 325 MG TAB PO PRN (16:23)
[2017-11-08 16:31] VITALS: BP 131/77; PULSE 95; RESP 18; TEMP 98.4; O2SAT 96
[2017-11-08] MEDS: ENOXAPARIN SODIUM 40 MG/0.4 ML SYRINGE SQ SCH (18:21)
[2017-11-08] MEDS: SODIUM CHLOR 0.9% 1000 ML INJ 1,000 ML IV SCH (19:40)
[2017-11-09 00:34] VITALS: BP 123/78; PULSE 102; RESP 17; TEMP 99.8; O2SAT 95
[2017-11-09] MEDS: DILTIAZEM-CD 120 MG CAP ER PO SCH ×2 (00:39→10:33)
[2017-11-09] MEDS: SODIUM CHLORIDE 0.9% FLUSH 10 ML FLUSH IV FLUSH SCH ×2 (00:39→10:33)
[2017-11-09] MEDS: DONEPEZIL HCL 5 MG TAB PO SCH (00:39)
[2017-11-09 06:06] VITALS: BP 129/78; PULSE 100; RESP 17; TEMP 99.2; O2SAT 95
[2017-11-09 08:31] VITALS: BP 100/60; PULSE 68; RESP 18; TEMP 97.9; O2SAT 96
[2017-11-09] MEDS: VENLAFAXINE HCL XR 75 MG CAP PO SCH (10:32)
[2017-11-09] MEDS: ASPIRIN 81 MG CHEW TAB CHEW SCH (10:33)
[2017-11-09] MEDS ORDERED: VENTAER INH (10:33)
[2017-11-09] MEDS ORDERED: OSEL75 PO (10:33)
[2017-11-09] MEDS: OSELTAMIVIR PHOSPHATE 75 MG CAP PO SCH (10:33)
--- NOTE | 2017-11-09 10:33 | HHI.PR ---
Subjective Remarks Follow-up influenza. He is feeling much better no complaints denies shortness of breath. Ambulating in the room. Seen with significant other. Discussed with RN Objective Vitals Vital Signs Date Time Temp Pulse Resp B/P (MAP) Pulse Ox O2 Delivery O2 Flow Rate FiO2 11/09/17 08:31 97.9 68 18 100/60 (73) 96 11/09/17 06:06 99.2 100 17 129/78 (95) 95 11/09/17 00:34 99.8 102 17 123/78 (93) 95 11/08/17 16:31 98.4 95 18 131/77 (95) 96 11/08/17 12:20 96.2 102 18 111/79 (90) 98 I/O 11/08/17 11/08/17 11/08/17 11/09/17 11/09/17 11/09/17 07:00 15:00 23:00 07:00 15:00 23:00 Intake Total 960 ml Output Total 910 ml Balance -910 ml 960 ml Intake Oral 960 ml Output Urine Total 910 ml # Voids 2 # Bowel Movements 1 Result Diagram: 11/08/17 0655 11/08/17 0655 Imaging Last Impressions Head CT 11/07/17 1416 Signed Impressions: Service Date/Time: Tuesday, November 07, 2017 14:37 - CONCLUSION: 1. No acute intracranial abnormality. Alcides Mack MD Chest X-Ray 11/07/17 1416 Signed Impressions: Service Date/Time: Tuesday, November 07, 2017 14:31 - CONCLUSION: No acute disease. Freddie Poole MD Objective Remarks GENERAL: This is a well-nourished, well-developed patient, in no apparent distress. SKIN: No rashes, ecchymoses or lesions. Cool and dry. CARDIOVASCULAR: Regular rate and rhythm without murmurs, gallops, or rubs. RESPIRATORY: Scattered rhonchi. Breath sounds equal bilaterally. GASTROINTESTINAL: Abdomen soft, non-tender, nondistended. No guarding. MUSCULOSKELETAL: Extremities without clubbing, cyanosis, or edema. No joint tenderness, effusion, or edema noted. No calf tenderness. Negative Homans sign bilaterally. NEUROLOGICAL: Awake and alert. Oriented. Cranial nerves II through XII intact. Nonfocal Procedures None A/P Problem List: (1) Influenza A ICD Code: J10.1 - Influenza due to other identified influenza virus with other respiratory manifestations Status: Acute Assessment and Plan Acute influenza infection. Stable complete Tamiflu treatment. Add albuterol MDI. Generalized weakness. Improved with IV hydration. Physical therapy recommended home health care PT Encephalopathy. CT head with no acute findings. Secondary to infection, influenza positive. on Top of chronic dementia. Improved w. Continue to monitor Atrial fibrillation. Chronic. Continue home diltiazem. Patient is not on anticoagulation. Follow-up with primary care at discharge. Hypokalemia. Improved with supplementation Prophylaxis. Lovenox. Denies any history of bleeding Discharge Planning Discharge patient to home Condition on discharge: Improved Regular Diet as tolerated Ad Britni activity Rx written: Tamiflu and albuterol MDI Follow-up with primary care physician Grady Goodman MD Nov 09, 2017 10:33
[2017-11-09] MEDS: SODIUM CHLOR 0.9% 1000 ML INJ 1,000 ML IV SCH (12:33)
[2017-11-09 15:18] LABS: BICARBONATE 29.6 MEQ/L (21.0-32.0); CALCIUM 8.1 MG/DL (8.5-10.1); CREATININE 0.99 MG/DL (0.60-1.30); MAGNESIUM 2.3 MG/DL (1.5-2.5)
--- NOTE | 2017-11-09 15:53 | HHI.DS ---
Discharge Summary Admission Date Nov 07, 2017 at 16:21 Discharge Date: Nov 09, 2017 Admitting Diagnosis altered mental status, influenza (1) Influenza A ICD Code: J10.1 - Influenza due to other identified influenza virus with other respiratory manifestations Diagnosis: Principal Status: Acute Procedures None Brief History - From Admission 72-year-old male with a history of dementia, traumatic brain injury, atrial fibrillation, who presents with a three-day history of worsening malaise, dry cough over the past 3 days, subjective fevers. Fiance at bedside reports patient confused today, at times disoriented as to situation. No slurred speech. No focal weakness. Fiance says he is back to normal after IV fluids in the ER. patient says he is still very weak, too weak to go home. Patient denies any sick contacts. CBC/BMP: 11/08/17 0655 11/09/17 1425 Significant Findings Laboratory Tests Test 11/07/17 14:25 11/07/17 15:40 11/08/17 06:55 11/09/17 14:25 Platelet Count 130 TH/MM3 (150-450) 108 TH/MM3 (150-450) Neutrophils (%) (Auto) 77.7 % (16.0-70.0) Lymphocytes (%) (Auto) 8.9 % (9.0-44.0) Monocytes (%) (Auto) 12.9 % (0.0-8.0) 26.6 % (0.0-8.0) Lymphocytes # (Auto) 0.4 TH/MM3 (1.0-4.8) 0.6 TH/MM3 (1.0-4.8) Calcium Level 8.1 MG/DL (8.5-10.1) 8.0 MG/DL (8.5-10.1) 8.1 MG/DL (8.5-10.1) Estimat Glomerular Filtration Rate 58 ML/MIN (>89) 63 ML/MIN (>89) 75 ML/MIN (>89) Troponin I LESS THAN 0.02 NG/ML Urine Protein 30 mg/dL (NEG-TRACE) Urine Mucus FEW /lpf (OCC) White Blood Count 2.9 TH/MM3 (4.0-11.0) Neutrophils # (Auto) 1.5 TH/MM3 (1.8-7.7) Total Protein 6.3 GM/DL (6.4-8.2) Potassium Level 3.2 MEQ/L (3.5-5.1) Imaging Last Impressions Head CT 11/07/17 1416 Signed Impressions: Service Date/Time: Tuesday, November 07, 2017 14:37 - CONCLUSION: 1. No acute intracranial abnormality. Alcides Mack MD Chest X-Ray 11/07/171415 Signed Impressions: Service Date/Time: Tuesday, November 07, 2017 14:31 - CONCLUSION: No acute disease. Freddie Poole MD PE at Discharge GENERAL: This is a well-nourished, well-developed patient, in no apparent distress. SKIN: No rashes, ecchymoses or lesions. Cool and dry. CARDIOVASCULAR: Regular rate and rhythm without murmurs, gallops, or rubs. RESPIRATORY: Scattered rhonchi. Breath sounds equal bilaterally. GASTROINTESTINAL: Abdomen soft, non-tender, nondistended. No guarding. MUSCULOSKELETAL: Extremities without clubbing, cyanosis, or edema. No joint tenderness, effusion, or edema noted. No calf tenderness. Negative Homans sign bilaterally. NEUROLOGICAL: Awake and alert. Oriented. Cranial nerves II through XII intact. Nonfocal Hospital Course Acute influenza infection. Stable complete Tamiflu treatment. Add albuterol MDI. Generalized weakness. Improved with IV hydration. Physical therapy recommended home health care PT Encephalopathy. CT head with no acute findings. Secondary to infection, influenza positive. on Top of chronic dementia. Improved w. Continue to monitor Atrial fibrillation. Chronic. Continue home diltiazem. Patient is not on anticoagulation. Follow-up with primary care at discharge. Hypokalemia. Improved with supplementation NICOLETTE on CPAP Prophylaxis. Lovenox. Denies any history of bleeding Pt Condition on Discharge: Stable Discharge Disposition: Disch w/ Home Health Serv Discharge Time: > 30 minutes Discharge Instructions DIET: Follow Instructions for: Heart Healthy Diet Activities you can perform: Regular-No Restrictions Follow up Referrals: PCP Follow-up - 1 Week with Fam Sol MD New Orders: BASIC METABOLIC PROF - 1 Week CBC WITH DIFF - 1 Week New Medications: Albuterol 18 GM Inh (Ventolin Hfa 18 GM Inh) 90 Mcg/Act Aer 2 PUFF INH Q4-6H PRN for SHORTNESS OF BREATH, #1 INHALER 0 Refills Oseltamivir (Tamiflu) 75 Mg Cap 75 MG PO BID@0600,1800 for influenza for 3 Days, #6 CAP Continued Medications: Alprazolam (Xanax) 0.5 Mg Tab 0.5 MG PO BID PRN for ANXIETY, TAB 0 Refills Aspirin (Aspirin) 81 Mg Chew 81 MG CHEW DAILY, TAB 0 Refills B-Complex Vitamins (B Complex) 1 Cap 1 CAP PO DAILY for Nutritional Supplement, #30 CAP 0 Refills Cyanocobalamin (B12) 1,000 Mcg Tab 1 TAB PO DAILY Diltiazem ER 12 HR (Diltiazem ER 12 HR) 120 Mg Caper 120 MG PO BID, #60 CAP 0 Refills Donepezil (Donepezil) 10 Mg Tab 10 MG PO HS for Dementia, #30 TAB 0 Refills Memantine Er (Namenda Xr) 28 Mg Caper 28 MG PO DAILY for Alzheimer Disease, #30 CAP 0 Refills Venlafaxine (Effexor) 75 Mg Tab 75 MG PO DAILY, #30 TAB 0 Refills Discontinued Medications: Diltiazem (Diltiazem) 120 Mg Tab 120 MG PO QID for Angina, #120 TAB 0 Refills Additional Information Fall precautions Grady Goodman MD Nov 09, 2017 15:53
[2017-11-09] MEDS ORDERED: POTASSIUM CHLORIDE 20 MEQ CONTROLLED RELEASE TAB PO ONE (16:00)
== END 2017-11-09 17:19 | disposition home or self-care (01) ==
LOC: NEPE 13:54 → UNDOADMIN 16:21 → NEDA 16:21 → INTOOBSV 16:21 → NEPFCDU 17:42 → NEDA 17:42
PROVIDERS: ADMIT Internal Medicine; ATTEND Internal Medicine
DX: J10.1 Influenza due to other identified influenza virus with other respiratory manifestations (principal); G93.40 Encephalopathy, unspecified; I48.91 Unspecified atrial fibrillation; I10 Essential (primary) hypertension; E87.6 Hypokalemia; F03.90 Unspecified dementia, unspecified severity, without behavioral disturbance, psychotic disturbance, mood disturbance, and anxiety; G47.33 Obstructive sleep apnea (adult) (pediatric); Z87.820 Personal history of traumatic brain injury
CPT/HCPCS: 70450; 71045; 80048; 80053; 81001; 82550; 82552; 83735; 84443; 84484; 85025; 87040; 87804; 93005; 96360; 96372; 97162; 99285; G0378; G8987; G8988; J1650; J7030